=== PATIENT | female | born 1970 | race American Indian/Alaskan Native ===

== ENCOUNTER 2020-04-11 14:55 | Emergency (ER) | payer MEDICAID, OTHER ==
[2020-04-11 15:01] VITALS: BP 186/87
[2020-04-11] MEDS ORDERED: KETOROLAC 30 MG/1 ML INJ IM ONE (16:55)
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
== END 2020-04-11 17:52 | disposition home or self-care (01) ==
LOC: ED 14:55
DX: S39.012A Strain of muscle, fascia and tendon of lower back, initial encounter (principal); I10 Essential (primary) hypertension; G43.909 Migraine, unspecified, not intractable, without status migrainosus; Z98.51 Tubal ligation status; Z79.899 Other long term (current) drug therapy; V49.49XA Driver injured in collision with other motor vehicles in traffic accident, initial encounter; Y93.89 Activity, other specified; Y92.488 Other paved roadways as the place of occurrence of the external cause; Y99.8 Other external cause status
CPT/HCPCS: 96372; 99282; J1885

== ENCOUNTER 2021-01-19 11:33 | Emergency (ER) | payer SELFPAY ==
[2021-01-19 12:18] VITALS: BP 192/84
[2021-01-19 14:01] LABS: Bilirubin,Urine NEG (Negative); Blood,Urine SM (Negative); Color,Urine Yellow (Yellow); Protein,Urine <15 mg/dL mg/dL (Negative); Urobilinogen,Urine < 2.0 mg/dL (<2.0); WBC,Urine < 1.0 /HPF (0.0-6.0)
--- NOTE | 2021-01-19 14:53 | Event Note ---
ED Screening Note Date of service: 01/19/21 Time: 14:52 ED Screening Note: 50-year-old postmenopausal female patient with history of hypertension presents to the emergency department complaints of nontraumatic left lower back pain and hematuria starting yesterday. No known history of kidney stones. Hypertensive in triage; patient states she has not yet taken her blood pressure medication today. General: Awake, appropriately interactive, no acute distress. Neck: Supple. Full range of motion intact. Cardiovascular: Normal peripheral perfusion. Pulmonary: No respiratory distress. Patient is speaking normally without use of accessory muscles. Skin: No apparent rashes or lesions. Neurological: No facial asymmetry. Speech is clear. Follows commands. Patient is alert and oriented. Musculoskeletal: Left CVA tenderness. Moves all four extremities spontaneously with normal range of motion. Psych: Cooperative. Appropriate mood and affect. Labs and urinalysis ordered. Decision to obtain further imaging deferred to additional ED providers. I have greeted and performed a focused rapid initial assessment of this patient. A comprehensive ED assessment and evaluation of the patient, analysis of all test results, and completion of the medical decision-making process will be conducted by additional ED providers. This initial assessment/diagnostic orders/clinical plan/treatment(s) is/are subject to change based on patients health status, clinical progression and re-assessment. Further treatment and workup at subsequent clinical provider's discretion. Patient/guardian urged not to elope from the ED as their condition may be serious if not clinically assessed and managed.
[2021-01-19 15:29] LABS: Basophils # (Auto) 0.1 K/mm3 (0.0-0.1); Basophils % (Auto) 1.1 % (0.0-1.8); Eosinophils # (Auto) 0.6 K/mm3 (0.0-0.4); Eosinophils % (Auto) 7.2 % (0.0-4.3); Hematocrit 35.9 % (30.3-42.9); Hemoglobin 11.4 gm/dl (10.1-14.3); Lymphocytes # (Auto) 1.8 K/mm3 (1.2-5.4); Lymphocytes % (Auto) 22.2 % (13.4-35.0); Mean Corpuscular HGB Conc 32 % (30-34); Monocytes # (Auto) 0.7 K/mm3 (0.0-0.8); Monocytes % (Auto) 8.4 % (0.0-7.3); Platelet Count 350 K/mm3 (140-440); Red Blood Count 5.25 M/mm3 (3.65-5.03); Red Cell Distribution Width 18.4 % (13.2-15.2)
[2021-01-19 15:30] LABS: Mean Corpuscular Volume 68 fl (79-97)
[2021-01-19] MEDS ORDERED: SODIUM CHLORIDE 0.9% 1000 ML 1,000 ML IV ONE (16:27)
[2021-01-19] MEDS ORDERED: KETOROLAC 30 MG/1 ML INJ IV ONE (16:27)
[2021-01-19 16:28] LABS: Alanine Aminotransferase 20 units/L (7-56); Albumin 4.3 g/dL (3.9-5); Blood Urea Nitrogen 10 mg/dL (7-17); Hemolysis Index 2
[2021-01-19 16:29] LABS: BUN/Creatinine Ratio 14
--- NOTE | 2021-01-19 18:09 | Cat Scan Report ---
CT ABDOMEN AND PELVIS WITHOUT CONTRAST HISTORY: Left flank pain COMPARISON: None TECHNIQUE: Routine abdominal and pelvic CT exam performed without contrast. Lack of intravenous cont rast limits evaluation of the vascular and solid organs.. All CT scans at this location are performed using CT dose reduction for ALARA by means of automated exposure control. FINDINGS: CT ABDOMEN: Lung Bases: No significant abnormality. Liver: No significant abnormality. Biliary: No significant abnormality. Spleen: No significant abnormality. Unenlarged. Pancreas: No significant abnormality. Adrenals: No significant abnormality. Kidneys: No stones, pelvocaliectasis, ureterectasis. No perinephric or periureteral stranding. Lymphatics: No lymphadenopathy. Vasculature: No significant abnormality. Bowel/Peritoneum: No significant abnormality. No free air. No free fluid. Normal appendix. CT PELVIC: : No significant abnormality. Lymphatics: No lymphadenopathy. Osseous Structures: No aggressive appearing osseous lesions. Additional Findings: None IMPRESSION: 1. No urinary stones or other findings to explain left flank pain. Signer Name: Xavi Roach MD Signed: 01/19/2021 6:05 PM Workstation Name: [id number]
--- NOTE | 2021-01-19 18:49 | Emergency Department Report ---
ED Abdominal Pain HPI - General Chief Complaint: Urogenital-Female Stated Complaint: LOWER BACK PAIN, BLOOD IN URINE Time Seen by Provider: 01/19/21 15:37 Source: patient Mode of arrival: Ambulatory Limitations: No Limitations - History of Present Illness Initial Comments: This is a 50-year-old female with no past medical history presents to ED complaining of left flank pain and hematuria x1 week. Patient states that flank pain began about a week ago and 5 days ago she noticed blood in her urine. Patient states that pain is cramping aching spasmatic and sharp that comes and goes throughout the day. Patient denies lifting any heavy objects or trauma or fall. Patient denies fever/chills/nausea vomiting. MD Complaint: flank pain Severity scale (0 -10): 10 - Related Data Home Medications Medication Instructions Recorded Confirmed Last Taken Lisinopril/Hydrochlorothiazide 1 tab PO DAILY 08/23/14 09/10/14 09/10/14 [Zestoretic 20-25 mg] Ibuprofen [Motrin] 400 mg PO Q8H PRN 09/10/14 09/10/14 09/10/14 Previous Rx's Medication Instructions Recorded Last Taken Type Benzonatate [Tessalon Perles] 100 mg PO Q8HR PRN #30 capsule 09/11/14 Unknown Rx traMADoL [Ultram 50 MG tab] 50 mg PO Q6HR PRN #20 tablet 09/11/14 Unknown Rx Ibuprofen [Motrin 600 MG tab] 600 mg PO Q8H PRN #20 tablet 10/13/15 Unknown Rx diazePAM TAB [Valium] 2 mg PO Q8HR PRN #10 tablet 10/13/15 Unknown Rx Menthol/Camphor [[place] 1 applicatio TP QID PRN #1 tube 04/11/20 Unknown Rx Ointment] Cyclobenzaprine [Flexeril 10 MG 10 mg PO BID PRN #20 tablet 01/19/21 Unknown Rx TAB] Naproxen 500 mg PO BID PRN #30 tablet 01/19/21 Unknown Rx Tamsulosin [Flomax] 0.4 mg PO QDAY #10 cap 01/19/21 Unknown Rx Allergies Allergy/AdvReac Type Severity Reaction Status Date / Time hydrocodone bitartrate Allergy Hives Verified 04/11/20 14:57 [From Vicodin] ED Review of Systems ROS: Stated complaint: LOWER BACK PAIN, BLOOD IN URINE Other details as noted in HPI Comment: All other systems reviewed and negative ED Past Medical Hx - Past Medical History Previous Medical History?: Yes Hx Hypertension: Yes Hx Headaches / Migraines: Yes (last age 17) Hx HIV: No Additional medical history: Bronchitis - Surgical History Past Surgical History?: Yes Additional Surgical History: Tubal ligation - Social History Smoking Status: Never Smoker Substance Use Type: None - Medications Home Medications: Home Medications Medication Instructions Recorded Confirmed Last Taken Type Lisinopril/Hydrochlorothiazide 1 tab PO DAILY 08/23/14 09/10/14 09/10/14 History [Zestoretic 20-25 mg] Ibuprofen [Motrin] 400 mg PO Q8H PRN 09/10/14 09/10/14 09/10/14 History Benzonatate [Tessalon Perles] 100 mg PO Q8HR PRN #30 capsule 09/11/14 Unknown Rx traMADoL [Ultram 50 MG tab] 50 mg PO Q6HR PRN #20 tablet 09/11/14 Unknown Rx Ibuprofen [Motrin 600 MG tab] 600 mg PO Q8H PRN #20 tablet 10/13/15 Unknown Rx diazePAM TAB [Valium] 2 mg PO Q8HR PRN #10 tablet 10/13/15 Unknown Rx Menthol/Camphor [[place] 1 applicatio TP QID PRN #1 tube 04/11/20 Unknown Rx Ointment] Cyclobenzaprine [Flexeril 10 MG 10 mg PO BID PRN #20 tablet 01/19/21 Unknown Rx TAB] Naproxen 500 mg PO BID PRN #30 tablet 01/19/21 Unknown Rx Tamsulosin [Flomax] 0.4 mg PO QDAY #10 cap 01/19/21 Unknown Rx ED Physical Exam - General Limitations: No Limitations General appearance: alert, in no apparent distress - Head Head exam: Present: atraumatic, normocephalic - Eye Eye exam: Present: normal appearance - ENT ENT exam: Present: mucous membranes moist - Neck Neck exam: Present: normal inspection - Respiratory Respiratory exam: Present: normal lung sounds bilaterally. Absent: respiratory distress - Cardiovascular Cardiovascular Exam: Present: regular rate, normal rhythm. Absent: systolic murmur, diastolic murmur, rubs, gallop - GI/Abdominal GI/Abdominal exam: Present: soft, normal bowel sounds. Absent: distended, tenderness, guarding - Extremities Exam Extremities exam: Present: normal inspection, full ROM - Back Exam Back exam: Present: normal inspection, full ROM, CVA tenderness (R), CVA tenderness (L). Absent: tenderness, paraspinal tenderness - Neurological Exam Neurological exam: Present: alert, oriented X3, CN II-XII intact, normal gait - Psychiatric Psychiatric exam: Present: normal affect, normal mood - Skin Skin exam: Present: warm, dry, intact, normal color. Absent: rash ED Course Vital Signs 01/19/21 01/19/21 12:17 17:17 Temperature 97.9 F Pulse Rate 76 Respiratory 20 18 Rate Blood Pressure 192/84 O2 Sat by Pulse 100 Oximetry ED Medical Decision Making - Lab Data Result diagrams: 01/19/21 15:11 01/19/21 15:11 Laboratory Last Values WBC 8.1 K/mm3 (4.5-11.0) 01/19/21 15:11 RBC 5.25 M/mm3 (3.65-5.03) H 01/19/21 15:11 Hgb 11.4 gm/dl (10.1-14.3) 01/19/21 15:11 Hct 35.9 % (30.3-42.9) 01/19/21 15:11 MCV 68 fl (79-97) L 01/19/21 15:11 MCH 22 pg (28-32) L 01/19/21 15:11 MCHC 32 % (30-34) 01/19/21 15:11 RDW 18.4 % (13.2-15.2) H 01/19/21 15:11 Plt Count 350 K/mm3 (140-440) 01/19/21 15:11 Lymph % (Auto) 22.2 % (13.4-35.0) 01/19/21 15:11 [place] % (Auto) 8.4 % (0.0-7.3) H 01/19/21 15:11 Eos % (Auto) 7.2 % (0.0-4.3) H 01/19/21 15:11 Baso % (Auto) 1.1 % (0.0-1.8) 01/19/21 15:11 Lymph # (Auto) 1.8 K/mm3 (1.2-5.4) 01/19/21 15:11 [place] # (Auto) 0.7 K/mm3 (0.0-0.8) 01/19/21 15:11 Eos # (Auto) 0.6 K/mm3 (0.0-0.4) H 01/19/21 15:11 Baso # (Auto) 0.1 K/mm3 (0.0-0.1) 01/19/21 15:11 Seg Neutrophils % 61.1 % (40.0-70.0) 01/19/21 15:11 Seg Neutrophils # 4.9 K/mm3 (1.8-7.7) 01/19/21 15:11 Sodium 140 mmol/L (137-145) 01/19/21 15:11 Potassium 4.1 mmol/L (3.6-5.0) 01/19/21 15:11 Chloride 103.2 mmol/L (98-107) 01/19/21 15:11 Carbon Dioxide 26 mmol/L (22-30) 01/19/21 15:11 Anion Gap 15 mmol/L 01/19/21 15:11 BUN 10 mg/dL (7-17) 01/19/21 15:11 Creatinine 0.7 mg/dL (0.6-1.2) 01/19/21 15:11 Estimated GFR > 60 ml/min 01/19/21 15:11 BUN/Creatinine Ratio 14 % 01/19/21 15:11 Glucose 91 mg/dL (65-100) 01/19/21 15:11 Calcium 9.0 mg/dL (8.4-10.2) 01/19/21 15:11 Magnesium 2.20 mg/dL (1.7-2.3) 01/19/21 15:11 Total Bilirubin 0.20 mg/dL (0.1-1.2) 01/19/21 15:11 AST 23 units/L (5-40) 01/19/21 15:11 ALT 20 units/L (7-56) 01/19/21 15:11 Alkaline Phosphatase 97 units/L (35-129) 01/19/21 15:11 Total Protein 7.0 g/dL (6.3-8.2) 01/19/21 15:11 Albumin 4.3 g/dL (3.9-5) 01/19/21 15:11 Albumin/Globulin Ratio 1.6 % 01/19/21 15:11 Urine Color Yellow (Yellow) 01/19/21 Unknown Urine Turbidity Clear (Clear) 01/19/21 Unknown Urine pH 6.0 (5.0-7.0) 01/19/21 Unknown Ur Specific [place] 1.011 (1.003-1.030) 01/19/21 Unknown Urine Protein <15 mg/dl mg/dL (Negative) 01/19/21 Unknown Urine Glucose (UA) Neg mg/dL (Negative) 01/19/21 Unknown Urine Ketones Neg mg/dL (Negative) 01/19/21 Unknown Urine Blood Sm (Negative) 01/19/21 Unknown Urine Nitrite Neg (Negative) 01/19/21 Unknown Urine Bilirubin Neg (Negative) 01/19/21 Unknown Urine Urobilinogen < 2.0 mg/dL (<2.0) 01/19/21 Unknown Ur Leukocyte Esterase Neg (Negative) 01/19/21 Unknown Urine WBC (Auto) < 1.0 /HPF (0.0-6.0) 01/19/21 Unknown Urine RBC (Auto) 1.0 /HPF (0.0-6.0) 01/19/21 Unknown U Epithel Cells (Auto) 1.0 /HPF (0-13.0) 01/19/21 Unknown - Radiology Data Radiology results: report reviewed, image reviewed CT ABDOMEN AND PELVIS WITHOUT CONTRAST HISTORY: Left flank pain COMPARISON: None TECHNIQUE: Routine abdominal and pelvic CT exam performed without contrast. Lack of intravenous contrast limits evaluation of the vascular and solid orga ns.. All CT scans at this location are p erformed using CT dose reduction for ALARA by means of automated exposure control. FINDINGS: CT ABDOMEN: Lung Bases: No significant abnormality. Liver: No significant abnormality. Biliary: No significant abnormality. Spleen: No significant abnormality. Unenlarged. Pancreas: No significant abnormality. Adrenals: No significant abnormality. Kidneys: No stones, pelvocaliectasis, ureterectasis. No perinephric or periureteral stranding. Lymphatics: No lymphadenopathy. Vasculature: No significant abnormality. Bowel/Peritoneum: No significant abnormality. No free air. No free fluid. Normal appendix. CT PELVIC: : No significant abnormality. Lymphatics: No lymphadenopathy. Osseous Structures: No aggressive appearing osseous lesions. Additional Findings: None IMPRESSION: 1. No urinary stones or other findings to explain left flank pain. Signer Name: Xavi Roach MD Signed: 01/19/2021 6:05 PM Workstation Name: [id number] Transcribed By: ELEANOR Dictated By: Xavi Roach MD Electronically Authenticated By: Xavi Roach MD Signed Date/Time: 01/19/21 7675 - Medical Decision Making This 50-year-old female who presented with flank pain and hematuria most likely secondary to passed stone. All labs are within normal limits. Urinalysis is negative. CT scan shows no acute findings or stone. Discussed follow-up with primary care physician. Discussed home medication. Patient has no neurological deficit reports feeling better upon reevaluation. At this time patient's vital signs are normal and she is safe for discharge. Critical care attestation.: If time is entered above; I have spent that time in minutes in the direct care of this critically ill patient, excluding procedure time. ED Disposition Clinical Impression: Flank pain, Hematuria Disposition: DC- TO HOME OR SELFCARE Is pt being admited?: No Does the pt Need Aspirin: No Condition: Stable Instructions: Flank Pain, Adult, [id number] Additional Instructions: Make sure to follow up with the primary care physician as discussed. Take all your medications as you've been prescribed. If you have any worsening symptoms or develop new symptoms please return to ED immediately. Prescriptions: Cyclobenzaprine [Flexeril 10 MG TAB] 10 mg PO BID PRN #20 tablet PRN Reason: Muscle Spasm Tamsulosin [Flomax] 0.4 mg PO QDAY #10 cap Naproxen 500 mg PO BID PRN #30 tablet PRN Reason: pain Referrals: PRIMARY CARE, [Primary Care Provider] - [facility] - 3-5 Days [facility] [Outside] - 3-5 Days [facility] [Outside] - 3-5 Days Forms: Accompanied Note, Work/School Release Form(ED) Time of Disposition: 19:31
== END 2021-01-19 19:47 | disposition home or self-care (01) ==
LOC: ED 11:33
DX: R31.9 Hematuria, unspecified (principal); R10.9 Unspecified abdominal pain; M54.5 Low back pain; I10 Essential (primary) hypertension; G43.909 Migraine, unspecified, not intractable, without status migrainosus; Z98.890 Other specified postprocedural states; Z98.51 Tubal ligation status; Z79.899 Other long term (current) drug therapy; Z88.5 Allergy status to narcotic agent
CPT/HCPCS: 36415; 74176; 80053; 81001; 83735; 85025; 96361; 96374; 99284; J1885; J7030

== ENCOUNTER 2021-04-26 05:49 | Emergency (ER) | payer OTHER ==
[2021-04-26 06:01] VITALS: BP 183/83
[2021-04-26 06:57] LABS: Basophils # (Auto) 0.1 K/mm3 (0.0-0.1); Basophils % (Auto) 1.1 % (0.0-1.8); Eosinophils # (Auto) 0.8 K/mm3 (0.0-0.4); Eosinophils % (Auto) 10.9 % (0.0-4.3); Hematocrit 37.6 % (30.3-42.9); Hemoglobin 11.8 gm/dl (10.1-14.3); Lymphocytes # (Auto) 1.6 K/mm3 (1.2-5.4); Lymphocytes % (Auto) 21.6 % (13.4-35.0); Mean Corpuscular HGB Conc 31 % (30-34); Mean Corpuscular Volume 71 fl (79-97); Monocytes # (Auto) 0.7 K/mm3 (0.0-0.8); Monocytes % (Auto) 9.5 % (0.0-7.3); Platelet Count 301 K/mm3 (140-440); Red Blood Count 5.32 M/mm3 (3.65-5.03); Red Cell Distribution Width 19.5 % (13.2-15.2)
[2021-04-26 07:18] LABS: Alanine Aminotransferase 18 units/L (7-56); Albumin 3.8 g/dL (3.9-5); BUN/Creatinine Ratio 15; Blood Urea Nitrogen 12 mg/dL (7-17); Calcium 8.7 mg/dL (8.4-10.2); Hemolysis Index 3
[2021-04-26 07:48] LABS: Bilirubin,Urine NEG (Negative); Blood,Urine LG (Negative); Color,Urine Yellow (Yellow); Mucus,Urine FEW /HPF; Protein,Urine <15 mg/dL mg/dL (Negative); Urobilinogen,Urine < 2.0 mg/dL (<2.0)
== END 2021-04-26 13:12 ==
LOC: ED 05:49
DX: R07.89 Other chest pain (principal); Z53.21 Procedure and treatment not carried out due to patient leaving prior to being seen by health care provider
CPT/HCPCS: 36415; 80053; 81001; 85025

== ENCOUNTER 2021-07-01 13:05 | Emergency (ER) | payer SELFPAY ==
[2021-07-01 13:18] VITALS: BP 193/89
[2021-07-01 14:59] LABS: Bacteria,Urine 1+ /HPF (Negative); Bilirubin,Urine NEG (Negative); Blood,Urine LG (Negative); Color,Urine Straw (Yellow); Protein,Urine <15 mg/dL mg/dL (Negative); RBC,Urine < 1.0 /HPF (0.0-6.0); Urobilinogen,Urine < 2.0 mg/dL (<2.0)
--- NOTE | 2021-07-01 15:06 | Emergency Department Report ---
ED Female HPI - General Chief complaint: Urogenital-Female Stated complaint: LOWER BACK PAIN/ABD/BLOOD IN URINE Time Seen by Provider: 07/01/21 13:16 Source: patient Mode of arrival: Ambulatory Limitations: No Limitations - History of Present Illness Initial comments: Patient is a 51-year-old female presents emergency room with complaints of urinary frequency that began a couple days ago. She has associated lower back pain, suprapubic pain, hematuria. She denies any dysuria, fever, nausea, vomiting, diarrhea, vaginal bleeding. Past medical history of hypertension. allergy:hydrocodone. She went through menopause. - Related Data Home Medications Medication Instructions Recorded Confirmed Last Taken Lisinopril/Hydrochlorothiazide 1 tab PO DAILY 08/23/14 09/10/14 09/10/14 [Zestoretic 20-25 mg] Ibuprofen [Motrin] 400 mg PO Q8H PRN 09/10/14 09/10/14 09/10/14 Previous Rx's Medication Instructions Recorded Last Taken Type Benzonatate [Tessalon Perles] 100 mg PO Q8HR PRN #30 capsule 09/11/14 Unknown Rx traMADoL [Ultram 50 MG tab] 50 mg PO Q6HR PRN #20 tablet 09/11/14 Unknown Rx Ibuprofen [Motrin 600 MG tab] 600 mg PO Q8H PRN #20 tablet 10/13/15 Unknown Rx diazePAM TAB [Valium] 2 mg PO Q8HR PRN #10 tablet 10/13/15 Unknown Rx Menthol/Camphor [[place] 1 applicatio TP QID PRN #1 tube 04/11/20 Unknown Rx Ointment] Cyclobenzaprine [Flexeril 10 MG 10 mg PO BID PRN #20 tablet 01/19/21 Unknown Rx TAB] Naproxen 500 mg PO BID PRN #30 tablet 01/19/21 Unknown Rx Tamsulosin [Flomax] 0.4 mg PO QDAY #10 cap 01/19/21 Unknown Rx Phenazopyridine [Pyridium] 100 mg PO TID 2 Days #6 tab 07/01/21 Unknown Rx cephALEXin [Keflex] 500 mg PO BID 7 Days #14 cap 07/01/21 Unknown Rx Allergies Allergy/AdvReac Type Severity Reaction Status Date / Time hydrocodone bitartrate Allergy Hives Verified 04/11/20 14:57 [From Vicodin] ED Review of Systems ROS: Stated complaint: LOWER BACK PAIN/ABD/BLOOD IN URINE Other details as noted in HPI Comment: All other systems reviewed and negative ED Past Medical Hx - Past Medical History Previous Medical History?: Yes Hx Hypertension: Yes Hx Headaches / Migraines: Yes (last age 17) Hx HIV: No Additional medical history: Bronchitis - Surgical History Past Surgical History?: Yes Additional Surgical History: Tubal ligation - Social History Smoking Status: Never Smoker Substance Use Type: None - Medications Home Medications: Home Medications Medication Instructions Recorded Confirmed Last Taken Type Lisinopril/Hydrochlorothiazide 1 tab PO DAILY 08/23/14 09/10/14 09/10/14 History [Zestoretic 20-25 mg] Ibuprofen [Motrin] 400 mg PO Q8H PRN 09/10/14 09/10/14 09/10/14 History Benzonatate [Tessalon Perles] 100 mg PO Q8HR PRN #30 capsule 09/11/14 Unknown Rx traMADoL [Ultram 50 MG tab] 50 mg PO Q6HR PRN #20 tablet 09/11/14 Unknown Rx Ibuprofen [Motrin 600 MG tab] 600 mg PO Q8H PRN #20 tablet 10/13/15 Unknown Rx diazePAM TAB [Valium] 2 mg PO Q8HR PRN #10 tablet 10/13/15 Unknown Rx Menthol/Camphor [[place] 1 applicatio TP QID PRN #1 tube 04/11/20 Unknown Rx Ointment] Cyclobenzaprine [Flexeril 10 MG 10 mg PO BID PRN #20 tablet 01/19/21 Unknown Rx TAB] Naproxen 500 mg PO BID PRN #30 tablet 01/19/21 Unknown Rx Tamsulosin [Flomax] 0.4 mg PO QDAY #10 cap 01/19/21 Unknown Rx Phenazopyridine [Pyridium] 100 mg PO TID 2 Days #6 tab 07/01/21 Unknown Rx cephALEXin [Keflex] 500 mg PO BID 7 Days #14 cap 07/01/21 Unknown Rx ED Physical Exam - General Limitations: No Limitations General appearance: alert, in no apparent distress - Head Head exam: Present: atraumatic, normocephalic - Eye Eye exam: Present: normal appearance - ENT ENT exam: Present: mucous membranes moist - Respiratory Respiratory exam: Present: normal lung sounds bilaterally. Absent: respiratory distress, wheezes, rales, rhonchi, stridor, chest wall tenderness, accessory muscle use, decreased breath sounds, prolonged expiratory - Cardiovascular Cardiovascular Exam: Present: regular rate, normal rhythm, normal heart sounds. Absent: systolic murmur, diastolic murmur, rubs, gallop - GI/Abdominal GI/Abdominal exam: Present: soft, tenderness (mild suprapubic ), normal bowel sounds. Absent: distended, guarding, rebound, rigid - Back Exam Back exam: Absent: CVA tenderness (R), CVA tenderness (L) - Neurological Exam Neurological exam: Present: alert, oriented X3 - Psychiatric Psychiatric exam: Present: normal affect, normal mood - Skin Skin exam: Present: warm, dry, intact ED Course Vital Signs 07/01/21 13:17 Temperature 97.8 F Pulse Rate 76 Respiratory 18 Rate Blood Pressure 193/89 O2 Sat by Pulse 99 Oximetry ED Medical Decision Making - Medical Decision Making Patient is a 51-year-old female presents emergency room with complaints of urinary frequency that began a couple days ago. She has associated lower back pain, suprapubic pain, hematuria. She denies any dysuria, fever, nausea, vomiting, diarrhea, vaginal bleeding. Past medical history of hypertension. allergy:hydrocodone. She went through menopause. Vitals are stable. No CVA tenderness on exam. UA shows 1+ bacteria, symptoms could likely be related to UTI. There is no red blood cells present in the urine. Patient given prescription for medication. Discussed the importance of outpatient follow-up. Discussed return precautions. Advised patient Please take medication as prescribed. Increase your fluid intake. Medication may turn your urine orange. This is normal. Follow-up with your primary care doctor. Return to emergency room for any new or worsening symptoms. Critical care attestation.: If time is entered above; I have spent that time in minutes in the direct care of this critically ill patient, excluding procedure time. ED Disposition Clinical Impression: UTI (urinary tract infection) Qualifiers: Urinary tract infection type: acute cystitis Hematuria presence: without hematuria Qualified Code(s): N30.00 - Acute cystitis without hematuria Disposition: HOME / SELF CARE / HOMELESS Is pt being admited?: No Does the pt Need Aspirin: No Condition: Stable Instructions: Urinary Tract Infection, Adult Additional Instructions: Please take medication as prescribed. Increase your fluid intake. Medication may turn your urine orange. This is normal. Follow-up with your primary care doctor. Return to emergency room for any new or worsening symptoms. Prescriptions: cephALEXin [Keflex] 500 mg PO BID 7 Days #14 cap Phenazopyridine [Pyridium] 100 mg PO TID 2 Days #6 tab Referrals: SUNNY LEMON MD [Staff Physician] - 3-5 Days [facility] [Provider Group] - 3-5 Days Forms: Work/School Release Form(ED) Time of Disposition: 15:05 Print Language: GAMBIAN
== END 2021-07-01 15:14 | disposition home or self-care (01) ==
LOC: ED 13:05
DX: N30.00 Acute cystitis without hematuria (principal); I10 Essential (primary) hypertension; Z88.5 Allergy status to narcotic agent
CPT/HCPCS: 81001; 87086; 99283